=== PATIENT | male | born 1960 | race Caucasian/White ===

== ENCOUNTER 2021-10-07 08:13 | Emergency (ER) | payer BC ==
[~2021-10-07] VITALS: Ht 167.6 cm; Wt 86.2 kg
[~2021-10-07 08:13] MED LIST: CLON0.5T4 PO; GLIP2.5T3 PO; LEVO150T8 PO; METF-494 PO; SIMV-49 PO; SITA100T PO
[2021-10-07] MEDS ORDERED: DEXAMETHASONE SOD PHOSPHATE 4 MG INJ IV ONE (08:30)
[2021-10-07] MEDS ORDERED: IPRATROPIUM BROMIDE 0.5 MG/2.5 ML NEBU NEB ONE (08:30)
[2021-10-07] MEDS ORDERED: ALBUTEROL SULFATE 2.5 MG/3 ML NEBU NEB ONE (08:30)
[2021-10-07] MEDS ORDERED: DEXAMETHASONE SOD PHOSPHATE 10 MG INJ ONE (08:52)
[2021-10-07] MEDS ORDERED: ALBU18HF2 INH ×2 (08:56→10:30)
[2021-10-07] MEDS ORDERED: PRED20TA PO ×2 (08:56→10:30)
--- NOTE | 2021-10-07 08:59 | NUR ---
PT SEEN AND EXAMINED BY DR RANDLE. MEDICATED PER MD ORDER.
[2021-10-07] MEDS ORDERED: ALBUTEROL SULFATE 2.5 MG/ 0.5 ML NEBU ONE (09:03)
[2021-10-07] MEDS ORDERED: IPRATROPIUM BROMIDE 0.5 MG/2.5 ML NEBU ONE (09:03)
--- NOTE | 2021-10-07 09:05 | NUR ---
RESP THERAPIST HERE FOR BREATHING TX.
[2021-10-07 09:15] VITALS: BP 122/67
[2021-10-07 09:18] LABS: HEMATOCRIT 47.9 % (36.7-47.1); MEAN CORPUSCULAR HEMOGLOBIN 29.8 uug (23.8-33.4); MEAN CORPUSCULAR VOLUME 86.5 fL (73.0-96.2); PLATELET COUNT (AUTO) 191 K/uL (152-348)
[2021-10-07 09:26] LABS: CREATININE 1.1 mg/dL (0.6-1.3); POTASSIUM 3.8 mmol/L (3.5-5.1)
[2021-10-07] MEDS ORDERED: PROM5SYR PO (10:30)
--- NOTE | 2021-10-07 10:38 | NUR ---
d/c instruction given, pt.feeling better after HHNtx.
[2021-10-07 10:40] VITALS: BP 118/64
== END 2021-10-07 10:55 | disposition home or self-care (01) ==
LOC: ER 08:13
DX: B34.9 Viral infection, unspecified (principal); R05.9 Cough, unspecified; E03.9 Hypothyroidism, unspecified; I10 Essential (primary) hypertension; E11.9 Type 2 diabetes mellitus without complications; Z79.84 Long term (current) use of oral hypoglycemic drugs; Z79.890 Hormone replacement therapy; E78.5 Hyperlipidemia, unspecified; N40.0 Benign prostatic hyperplasia without lower urinary tract symptoms
CPT/HCPCS: 36415; 71045; 80048; 83880; 85025; 87426; 93005; 94644; 96374; 99285; C9803; J1100; U0003; A4663; J3590